=== PATIENT | female | born 1980 | race Two or more races ===

== ENCOUNTER 2019-05-01 20:30 | Emergency (ER) | payer MEDICAID ==
[~2019-05-01] VITALS: Ht 154.9 cm; Wt 68.2 kg
[2019-05-01] MEDS ORDERED: AMLO5TAB9 PO (20:56)
[2019-05-01] MEDS ORDERED: LOSA25TA44 PO (20:56)
[2019-05-01 21:19] LABS: BASOPHILS % (AUTO) 0.2 % (0.0-2.0); EOSINOPHILS % (AUTO) 0.2 % (1.0-6.0); HEMATOCRIT 39.6 % (36-46); HEMOGLOBIN 12.9 g/dL (12.0-16.0); LYMPHOCYTES # (AUTO) 0.8 K/uL (1.0-4.8); LYMPHOCYTES % (AUTO) 4.6 % (22.0-44.0); MEAN CORPUSCULAR HEMOGLOBIN 27.2 pg (26.0-34.0); MEAN CORPUSCULAR HGB CONC 32.7 G/dL (31.0-37.0); MEAN CORPUSCULAR VOLUME 83 fL (80-100); MONOCYTES # (AUTO) 0.7 K/uL (0.1-1.0); MONOCYTES % (AUTO) 4.2 % (2.0-9.0); NEUTROPHILS # (AUTO) 15.1 K/uL (1.8-7.7); NEUTROPHILS % (AUTO) 90.8 % (40.0-70.0); PLATELET COUNT (AUTO) 314 K/uL (150-450); RED BLOOD CELL COUNT(AUTO) 4.76 MIL/uL (4.00-5.20); RED CELL DISTRIBUTION WIDTH 14.8 % (11.5-14.5)
[2019-05-01 21:28] LABS: ANION GAP 6 mmol/L (8-16); CALCIUM, TOTAL 8.5 mg/dL (8.8-10.5); CARBON DIOXIDE 30 mmol/L (22-29); CHLORIDE 104 mmol/L (98-107); CREATININE 0.57 mg/dL (0.60-1.30); GLOMERULAR FILTR. RATE CALC > 60 mL/min (>60); GLUCOSE,RANDOM 150 mg/dL (70-110); POTASSIUM 3.4 mmol/L (3.5-5.1); SODIUM SERUM 140 mmol/L (136-145); UREA NITROGEN, BLOOD 10 mg/dL (7-18)
[2019-05-01 21:31] LABS: APPEARANCE,URINE CLOUDY (CLEAR); BILIRUBIN,URINE NEGATIVE (NEGATIVE); GLUCOSE, URINE (UA) NEGATIVE (NEGATIVE); KETONES,URINE NEGATIVE (NEGATIVE); LEUKOCYTE ESTERASE ,URINE NEGATIVE (NEGATIVE); NITRATE,URINE NEGATIVE (NEGATIVE); OCCULT BLOOD,URINE NEGATIVE (NEGATIVE); PH,URINE 7.5 (5.0-8.0); PROTEIN,URINE NEGATIVE (NEGATIVE); UROBILINOGEN,URINE 0.2 mg/dL (<=1.0)
[2019-05-01 21:39] LABS: ALANINE AMINOTRANSFERASE 33 U/L (12-78); ALBUMIN 3.8 g/dL (3.4-5.0); ALKALINE PHOSPHATASE 79 U/L (46-116); ASPARTATE AMINOTRANSFERASE 21 U/L (15-37); BILIRUBIN,TOTAL 0.3 mg/dL (0.1-1.0); HCG,QUANTITATIVE < 1 mIU/mL (0-6); LIPASE 119 U/L (73-393); TOTAL PROTEIN, SERUM 7.4 g/dL (6.4-8.2)
[2019-05-01] MEDS ORDERED: SODIUM CHLORIDE 0.9% 1,000 ML IV ONE (22:30)
[2019-05-01] MEDS ORDERED: ONDANSETRON HCL 4 MG/2 ML VIAL IVP ONE (22:30)
[2019-05-01] MEDS ORDERED: DICYCLOMINE HCL 20 MG TABLET PO ONE (22:30)
[2019-05-01] MEDS ORDERED: IOVERSOL 320 MG/ML 100 ML VIAL ONE (22:37)
[2019-05-01] MEDS ORDERED: SODIUM CHLORIDE 0.9% 100 ML ONE (22:37)
[2019-05-02] MEDS ORDERED: METOCLOPRAMIDE HCL 5 MG/ML 2 ML VIAL IVP ONE (01:45)
[2019-05-02] MEDS ORDERED: KETOROLAC TROMETHAMINE 30 MG/ML VIAL IVP ONE (01:45)
[2019-05-02 03:37] VITALS: BP 163/89
== END 2019-05-02 03:49 | disposition home or self-care (01) ==
LOC: EMS 20:32
DX: D72.829 Elevated white blood cell count, unspecified (principal); N85.8 Other specified noninflammatory disorders of uterus; R11.2 Nausea with vomiting, unspecified; I10 Essential (primary) hypertension; Z88.1 Allergy status to other antibiotic agents; Z79.899 Other long term (current) drug therapy
CPT/HCPCS: 36415; 74177; 76856; 80053; 81003; 83690; 84702; 85025; 96361; 96374; 96375; 99284; J1885; J2405; J2765; J7030; J7050; Q9967

== ENCOUNTER 2020-12-13 06:59 | Emergency (ER) | payer MEDICAID ==
[~2020-12-13] VITALS: Ht 154.9 cm; Wt 74.0 kg
[~2020-12-13 06:59] MED LIST: AMLO-257 PO; LOSA25TA41 PO
[2020-12-13 07:32] VITALS: BP 146/81
== END 2020-12-13 07:43 | disposition home or self-care (01) ==
LOC: EMS 07:04
DX: T19.2XXA Foreign body in vulva and vagina, initial encounter (principal); I10 Essential (primary) hypertension; Z88.1 Allergy status to other antibiotic agents; W45.8XXA Other foreign body or object entering through skin, initial encounter; Y93.89 Activity, other specified; Y92.89 Other specified places as the place of occurrence of the external cause; Y99.8 Other external cause status
CPT/HCPCS: 99284; Z7502

== ENCOUNTER 2021-01-23 07:26 | Emergency (ER) | payer MEDICAID ==
[~2021-01-23] VITALS: Ht 154.9 cm; Wt 74.1 kg
[2021-01-23] MEDS ORDERED: KETOROLAC TROMETHAMINE 30 MG/ML VIAL IM ONE (12:15)
[2021-01-23 12:25] LABS: APPEARANCE,URINE CLOUDY (CLEAR); BILIRUBIN,URINE NEGATIVE (NEGATIVE); GLUCOSE, URINE (UA) NEGATIVE (NEGATIVE); KETONES,URINE NEGATIVE (NEGATIVE); NITRATE,URINE NEGATIVE (NEGATIVE); OCCULT BLOOD,URINE NEGATIVE (NEGATIVE); PROTEIN,URINE NEGATIVE (NEGATIVE); UROBILINOGEN,URINE 0.2 mg/dL (<=1.0)
[2021-01-23 12:53] LABS: BACTERIA,URINE Many /HPF (None Seen); LEUKOCYTE ESTERASE ,URINE MODERATE (NEGATIVE); RBC,URINE None Seen /HPF (0-2)
[2021-01-23 12:54] LABS: SQUAMOUS EPITHELIAL CELL,UR Moderate /LPF (None Seen)
[2021-01-23] MEDS ORDERED: PHENAZOPYRIDINE HCL 100 MG TABLET PO ONE (13:15)
[2021-01-23] MEDS ORDERED: NITROFURANTOIN/NITROFURAN MAC 100 MG CAPSULE [MACROBID] PO ONE (13:15)
[2021-01-23 13:56] VITALS: BP 152/84
== END 2021-01-23 13:58 | disposition home or self-care (01) ==
LOC: EMS 07:30
DX: N39.0 Urinary tract infection, site not specified (principal); M54.50 Low back pain, unspecified; I10 Essential (primary) hypertension; Z88.1 Allergy status to other antibiotic agents
CPT/HCPCS: 81001; 81025; 87086; 96372; 99285; J1885

== ENCOUNTER 2021-07-08 17:34 | Emergency (ER) | payer MEDICAID ==
[~2021-07-08] VITALS: Ht 154.9 cm; Wt 80.0 kg
[2021-07-08] MEDS ORDERED: LOSA-30 PO (17:36)
[2021-07-08] MEDS ORDERED: KETOROLAC TROMETHAMINE 60 MG/2 ML VIAL IM ONE (19:00)
[2021-07-08] MEDS ORDERED: DIAZ5TAB5 PO (19:59)
[2021-07-08] MEDS ORDERED: GABA-1181 PO (19:59)
[2021-07-08 20:09] LABS: APPEARANCE,URINE CLEAR (CLEAR); BILIRUBIN,URINE NEGATIVE (NEGATIVE); GLUCOSE, URINE (UA) NEGATIVE (NEGATIVE); KETONES,URINE NEGATIVE (NEGATIVE); LEUKOCYTE ESTERASE ,URINE MODERATE (NEGATIVE); NITRATE,URINE NEGATIVE (NEGATIVE); OCCULT BLOOD,URINE NEGATIVE (NEGATIVE); PH,URINE 6.5 (5.0-8.0); PROTEIN,URINE NEGATIVE (NEGATIVE); SPECIFIC GRAVITIY, URINE 1.018 (1.003-1.030); UROBILINOGEN,URINE <=1.0 mg/dL (<=1.0)
[2021-07-08 20:31] LABS: RBC,URINE 0-2 /HPF (0-2)
[2021-07-08 20:32] LABS: BACTERIA,URINE Few /HPF (None Seen); SQUAMOUS EPITHELIAL CELL,UR Few /LPF (None Seen)
[2021-07-08 20:40] VITALS: BP 141/81
== END 2021-07-08 20:43 | disposition home or self-care (01) ==
LOC: EMS 17:34
DX: G89.29 Other chronic pain (principal); M54.50 Low back pain, unspecified; I10 Essential (primary) hypertension; Z88.1 Allergy status to other antibiotic agents; Z79.899 Other long term (current) drug therapy
CPT/HCPCS: 81001; 81002; 96372; 99285; J1885

== ENCOUNTER 2021-08-13 00:56 | Emergency (ER) | payer MEDICAID ==
[~2021-08-13] VITALS: Ht 154.9 cm; Wt 80.0 kg
[~2021-08-13 00:56] MED LIST changes: -AMLO-257 PO; +DIAZ5TAB5 PO; +GABA-1181 PO; +LOSA-30 PO; -LOSA25TA41 PO
[2021-08-13] MEDS ORDERED: ONDANSETRON HCL 4 MG TABLET PO ONE (01:45)
[2021-08-13 02:07] LABS: BASOPHILS % (AUTO) 0.3 % (0.0-2.0); EOSINOPHILS % (AUTO) 0.6 % (1.0-6.0); HEMATOCRIT 34.4 % (36-46); HEMOGLOBIN 11.2 g/dL (12.0-16.0); LYMPHOCYTES # (AUTO) 3.4 K/uL (1.0-4.8); LYMPHOCYTES % (AUTO) 36.7 % (22.0-44.0); MEAN CORPUSCULAR HEMOGLOBIN 24.5 pg (26.0-34.0); MEAN CORPUSCULAR HGB CONC 32.4 G/dL (31.0-37.0); MEAN CORPUSCULAR VOLUME 76 fL (80-100); MONOCYTES # (AUTO) 0.7 K/uL (0.1-1.0); MONOCYTES % (AUTO) 7.4 % (2.0-9.0); PLATELET COUNT (AUTO) 331 K/uL (150-450); RED BLOOD CELL COUNT(AUTO) 4.55 MIL/uL (4.00-5.20)
[2021-08-13 02:18] LABS: ANION GAP 9 mmol/L (8-16); CALCIUM, TOTAL 8.8 mg/dL (8.8-10.5); CARBON DIOXIDE 28 mmol/L (22-29); CHLORIDE 104 mmol/L (98-107); CREATININE 0.56 mg/dL (0.60-1.30); GLUCOSE,RANDOM 90 mg/dL (70-110); POTASSIUM 3.6 mmol/L (3.5-5.1); SODIUM SERUM 141 mmol/L (136-145); UREA NITROGEN, BLOOD 10 mg/dL (7-18)
[2021-08-13 02:21] LABS: GLOMERULAR FILTR. RATE CALC > 60 mL/min (>60); PROTHROMBIN TIME 10.5 SEC (9.4-11.6)
[2021-08-13 02:25] LABS: ALANINE AMINOTRANSFERASE 23 U/L (12-78); ALBUMIN 3.5 g/dL (3.4-5.0); ALKALINE PHOSPHATASE 70 U/L (46-116); ASPARTATE AMINOTRANSFERASE 15 U/L (15-37); BILIRUBIN,TOTAL 0.3 mg/dL (0.1-1.0); TOTAL PROTEIN, SERUM 7.3 g/dL (6.4-8.2)
[2021-08-13] MEDS ORDERED: ONDA-104 PO (03:48)
[2021-08-13] MEDS ORDERED: POLY17PO PO (03:48)
[2021-08-13 04:00] VITALS: BP 108/65
== END 2021-08-13 04:30 | disposition home or self-care (01) ==
LOC: EMS 00:57
DX: N93.9 Abnormal uterine and vaginal bleeding, unspecified (principal); K59.00 Constipation, unspecified; I10 Essential (primary) hypertension; Z88.1 Allergy status to other antibiotic agents
CPT/HCPCS: 36415; 80053; 85025; 85610; 85730; 93005; 99284; Q0162

== ENCOUNTER 2022-02-02 21:56 | Emergency (ER) | payer MEDICAID ==
[~2022-02-02] VITALS: Ht 154.9 cm; Wt 79.5 kg
[~2022-02-02 21:56] MED LIST changes: -DIAZ5TAB5 PO; -GABA-1181 PO; +ONDA-104 PO; +POLY17PO PO
[2022-02-02] MEDS ORDERED: METR500 PO (22:09)
[2022-02-02] MEDS ORDERED: AMLO-257 PO (22:09)
[2022-02-02] MEDS ORDERED: CLAR250T39 PO (22:09)
[2022-02-02] MEDS ORDERED: OMEP20 PO (22:09)
[2022-02-02] MEDS ORDERED: AMOX1TAB15 PO (22:09)
[2022-02-02] MEDS ORDERED: KETOROLAC TROMETHAMINE 60 MG/2 ML VIAL IM ONE (22:15)
[2022-02-02] MEDS ORDERED: ONDANSETRON HCL 4 MG TABLET PO ONE (22:15)
[2022-02-02] MEDS ORDERED: HYDROCODONE/ACETAMINOPHEN 5-325 MG TABLET PO ONE (22:15)
[2022-02-02 22:33] LABS: COVID AG,FIA SOURCE NASAL SWAB
[2022-02-02 22:59] LABS: INFLUENZA TYPE B NEGATIVE FOR TYPE B (NEGATIVE)
[2022-02-02 23:11] VITALS: BP 140/97
[2022-02-02 23:24] LABS: INFLUENZA TYPE A POSITIVE FOR TYPE A (NEGATIVE)
[2022-02-02] MEDS ORDERED: IBUP-1554 PO (23:27)
[2022-02-02] MEDS ORDERED: GUAIFDM PO (23:27)
[2022-02-02] MEDS ORDERED: HYDR-4723 PO (23:27)
== END 2022-02-03 00:18 | disposition home or self-care (01) ==
LOC: EMS 22:00
DX: J06.9 Acute upper respiratory infection, unspecified (principal); M79.10 Myalgia, unspecified site; I10 Essential (primary) hypertension; K21.9 Gastro-esophageal reflux disease without esophagitis; Z87.42 Personal history of other diseases of the female genital tract; Z88.1 Allergy status to other antibiotic agents; Z20.822 Contact with and (suspected) exposure to COVID-19
CPT/HCPCS: 99283; 87426; 87804; 96372; J1885; Q0162

== ENCOUNTER 2023-06-27 23:33 | Emergency (ER) | payer MEDICAID, OTHER ==
[~2023-06-27] VITALS: Ht 154.9 cm; Wt 80.5 kg
[~2023-06-27 23:33] MED LIST changes: +AMLO-257 PO; +AMOX1TAB15 PO; +CLAR250T39 PO; +GUAIFDM PO; +HYDR-4723 PO; +IBUP-1554 PO; +METR500 PO; +OMEP20 PO; -POLY17PO PO; +POLY17PO11 PO
[2023-06-27 23:55] VITALS: TEMP 98.4
[2023-06-28 01:24] LABS: BASOPHILS % (AUTO) 1.5 % (0.0-2.0); EOSINOPHILS % (AUTO) 2.2 % (1.0-6.0); HEMATOCRIT 29.3 % (36-46); HEMOGLOBIN 9.2 g/dL (12.0-16.0); LYMPHOCYTES # (AUTO) 2.9 K/uL (1.0-4.8); LYMPHOCYTES % (AUTO) 47.3 % (22.0-44.0); MEAN CORPUSCULAR HEMOGLOBIN 21.8 pg (26.0-34.0); MEAN CORPUSCULAR HGB CONC 31.4 G/dL (31.0-37.0); MEAN CORPUSCULAR VOLUME 70 fL (80-100); MONOCYTES # (AUTO) 0.5 K/uL (0.1-1.0); MONOCYTES % (AUTO) 8.4 % (2.0-9.0); NEUTROPHILS # (AUTO) 2.5 K/uL (1.8-7.7); NEUTROPHILS % (AUTO) 40.6 % (40.0-70.0); PLATELET COUNT (AUTO) 288 K/uL (150-450); RED BLOOD CELL COUNT(AUTO) 4.21 MIL/uL (4.00-5.20); RED CELL DISTRIBUTION WIDTH 19.2 % (11.5-14.5); WHITE BLOOD COUNT (AUTO) 6.1 K/uL (4.5-11.0)
[2023-06-28 01:25] LABS: RBC MORPHOLOGY COMMENT ABNORMAL RBC MORPH
[2023-06-28 01:30] LABS: ANION GAP 11 mmol/L (8-16); CALCIUM, TOTAL 9.5 mg/dL (8.8-10.5); CARBON DIOXIDE 25 mmol/L (22-29); CHLORIDE 103 mmol/L (98-107); CREATININE 0.55 mg/dL (0.60-1.30); GLOMERULAR FILTR. RATE CALC > 60 mL/min (>60); GLUCOSE,RANDOM 139 mg/dL (70-110); POTASSIUM 3.2 mmol/L (3.5-5.1); SODIUM SERUM 139 mmol/L (136-145); UREA NITROGEN, BLOOD 14 mg/dL (7-18)
[2023-06-28 01:36] LABS: ALANINE AMINOTRANSFERASE 39 U/L (12-78); ALBUMIN 3.1 g/dL (3.4-5.0); ALKALINE PHOSPHATASE 95 U/L (46-116); ASPARTATE AMINOTRANSFERASE 33 U/L (15-37); BILIRUBIN,TOTAL 0.2 mg/dL (0.1-1.0); TOTAL PROTEIN, SERUM 6.9 g/dL (6.4-8.2)
[2023-06-28] MEDS: KETOROLAC TROMETHAMINE 30 MG/ML VIAL IM ONE (02:19)
[2023-06-28 03:39] VITALS: BP 142/69; PULSE 63; RESP 16
== END 2023-06-28 03:42 | disposition home or self-care (01) ==
LOC: EMS 23:37
DX: N93.8 Other specified abnormal uterine and vaginal bleeding (principal); D64.9 Anemia, unspecified; I10 Essential (primary) hypertension; K21.9 Gastro-esophageal reflux disease without esophagitis; Z87.440 Personal history of urinary (tract) infections; Z88.0 Allergy status to penicillin
CPT/HCPCS: 99285; 80053; 84703; 85025; 36415; 76856; 96372; J1885

== ENCOUNTER 2023-08-28 23:26 | Emergency (ER) | payer OTHER ==
[~2023-08-28] VITALS: Ht 154.9 cm; Wt 76.8 kg
[~2023-08-28 23:26] MED LIST changes: +HYDR-4062 PO; -HYDR-4723 PO; -POLY17PO11 PO; +POLY17PO62 PO
[2023-08-28 23:30] VITALS: TEMP 98.5
[2023-08-28 23:47] LABS: APPEARANCE,URINE HAZY (CLEAR); BILIRUBIN,URINE NEGATIVE (NEGATIVE); COLOR,URINE LIGHT YELLOW (YELLOW); GLUCOSE, URINE (UA) NEGATIVE (NEGATIVE); KETONES,URINE NEGATIVE (NEGATIVE); LEUKOCYTE ESTERASE ,URINE TRACE (NEGATIVE); NITRATE,URINE NEGATIVE (NEGATIVE); OCCULT BLOOD,URINE NEGATIVE (NEGATIVE); PH,URINE 6.5 (5.0-8.0); PROTEIN,URINE TRACE mg/dL (NEGATIVE); SPECIFIC GRAVITIY, URINE 1.019 (1.003-1.030); UROBILINOGEN,URINE <=1.0 mg/dL (<=1.0)
[2023-08-28 23:56] LABS: AMORPHOUS SEDIMENT,UR Moderate /LPF (None Seen); BACTERIA,URINE Few /HPF (None Seen); RBC,URINE None Seen /HPF (0-2); SQUAMOUS EPITHELIAL CELL,UR Many /LPF (None Seen)
[2023-08-29] MEDS ORDERED: IBUP-1554 PO (02:41)
[2023-08-29] MEDS ORDERED: METH-812 PO (02:41)
[2023-08-29] MEDS ORDERED: CEPH-558 PO (02:41)
[2023-08-29] MEDS: METHOCARBAMOL 500 MG TABLET PO ONE (02:47)
[2023-08-29] MEDS: KETOROLAC TROMETHAMINE 30 MG/ML VIAL IM ONE (02:47)
[2023-08-29 02:55] VITALS: BP 145/81; PULSE 71; RESP 18
== END 2023-08-29 03:04 | disposition home or self-care (01) ==
LOC: EMS 23:26
DX: N39.0 Urinary tract infection, site not specified (principal); G89.29 Other chronic pain; M54.50 Low back pain, unspecified; I10 Essential (primary) hypertension; K21.9 Gastro-esophageal reflux disease without esophagitis; Z87.440 Personal history of urinary (tract) infections
CPT/HCPCS: 99283; 81001; 96372; J1885

== ENCOUNTER 2024-12-03 19:12 | Emergency (ER) | payer OTHER ==
[~2024-12-03] VITALS: Ht 152.4 cm; Wt 75.0 kg
[~2024-12-03 19:12] MED LIST changes: +CEPH-558 PO; +METH-812 PO; +OMEP-148 PO; -OMEP20 PO
[2024-12-03 19:26] VITALS: BP 161/95; PULSE 86; RESP 16; TEMP 98.6; O2SAT 100
== END 2024-12-03 20:13 | disposition left against medical advice (07) ==
LOC: EMS 19:12
DX: K59.00 Constipation, unspecified (principal); Z53.21 Procedure and treatment not carried out due to patient leaving prior to being seen by health care provider